=== PATIENT | female | born 1945 | race Caucasian/White ===

== ENCOUNTER 2019-01-13 06:37 | Day surgery (SDC) | payer MEDICARE, OTHER ==
[~2019-01-13 06:37] MED LIST: Lactated Ringers 1,000 ML IV SCH
[2019-01-13] MEDS: Lactated Ringers 1,000 ML IV SCH (07:17)
[2019-01-13] MEDS ORDERED: fentaNYL 100 MCG/2 ML SDV ONE (07:55)
[2019-01-13] MEDS ORDERED: Propofol 200 MG/20 ML SDV ONE (07:55)
--- NOTE | 2019-01-13 09:34 | OR ---
PREOPERATIVE DIAGNOSIS: Screening colonoscopy. POSTOPERATIVE DIAGNOSIS: Sigmoid diverticulosis, otherwise normal exam. PROCEDURE DONE: Total flexible colonoscopy. INDICATION: This is a 73-year-old female who comes in for screening colonoscopy. She denies any symptomatology. She is uncertain of any family history of colon cancer. Her last examination was 17 years ago. TECHNIQUE: The patient was brought to the endoscopy suite, placed in left lateral decubitus position. She was sedated per [employer] with propofol. The flexible video colonoscope was then passed transanally and under visualization advanced to the cecum. Examination revealed a normal ascending, transverse, and descending colon. The sigmoid colon revealed moderate diverticulosis and the rectal mucosa was normal. The scope was then withdrawn. She tolerated the procedure well. FINAL IMPRESSION: Sigmoid diverticulosis, otherwise normal exam. PLAN: The patient was reassured. At her age, actually I do not feel she needs another screening colonoscopy. SCM: 01/13/2019 09:02:17 MODL: 01/13/2019 09:29:09 /[id number]
== END 2019-01-13 10:12 | disposition home or self-care (01) ==
LOC: VM.SDS 06:37
PROVIDERS: ATTEND Surgery
DX: Z12.11 Encounter for screening for malignant neoplasm of colon (principal); K57.30 Diverticulosis of large intestine without perforation or abscess without bleeding; E11.9 Type 2 diabetes mellitus without complications; E78.00 Pure hypercholesterolemia, unspecified; J43.2 Centrilobular emphysema; M81.0 Age-related osteoporosis without current pathological fracture; F33.9 Major depressive disorder, recurrent, unspecified; E66.9 Obesity, unspecified; Z68.32 Body mass index [BMI] 32.0-32.9, adult; F17.210 Nicotine dependence, cigarettes, uncomplicated; Z79.84 Long term (current) use of oral hypoglycemic drugs; Z79.899 Other long term (current) drug therapy
CPT/HCPCS: 45378; 82962; J2704; J3010; J7120; 00812

== ENCOUNTER 2023-10-19 10:10 | Emergency (ER) | payer MEDICARE, OTHER, MEDICAID ==
[2023-10-19 20:13] VITALS: BP 110/72; PULSE 84
== END 2023-10-19 11:50 | disposition home or self-care (01) ==
LOC: VM.ED 10:10
DX: S70.01XA Contusion of right hip, initial encounter (principal); I10 Essential (primary) hypertension; E78.00 Pure hypercholesterolemia, unspecified; K21.9 Gastro-esophageal reflux disease without esophagitis; E11.9 Type 2 diabetes mellitus without complications; E66.9 Obesity, unspecified; Z68.27 Body mass index [BMI] 27.0-27.9, adult; Z72.0 Tobacco use; Z79.899 Other long term (current) drug therapy; Z79.82 Long term (current) use of aspirin; W18.30XA Fall on same level, unspecified, initial encounter; Y93.01 Activity, walking, marching and hiking; Y92.039 Unspecified place in apartment as the place of occurrence of the external cause
CPT/HCPCS: 99283; 99284

== ENCOUNTER 2023-10-26 13:17 | Inpatient (IN) | payer MEDICARE, OTHER, MEDICAID ==
[2023-10-26] MEDS ORDERED: Acetaminophen 325 MG Tab PO ONE (13:38)
[2023-10-26] MEDS ORDERED: Acetaminophen 325 MG Tab PO PRN (16:15)
[2023-10-26 16:31] LABS: HEMATOCRIT 34.9 % (33.0-47.0); HEMOGLOBIN 12.2 g/dL (12.0-16.0); MEAN CORPUSCULAR VOLUME 83.1 fL (78.0-93.0); PLATELET COUNT,PLT 88 x10^3/uL (130-400); WHITE BLOOD CELL COUNT,WBC 6.5 x10^3/uL (4.0-10.0)
[2023-10-26 16:50] LABS: BAND PERCENT MAN 3 % (0-6); EOSINOPHILS ABSOLUTE MAN 0.1 x10^3/uL (0.0-0.5); EOSINOPHILS PERCENT MAN 1 % (0-4); LYMPHOCYTES % ATYPICAL MANUAL 2 % (0); LYMPHOCYTES ABSOLUTE MAN 2.7 x10^3/uL (1.0-4.8); LYMPHOCYTES PERCENT MAN 40 % (25-50); METAMYELOCYTE PERCENT MAN 1 % (0); MONOCYTES ABSOLUTE MAN 0.6 x10^3/uL (0.0-0.8); MONOCYTES PERCENT MAN 9 % (2-11); MYELOCYTE PERCENT MAN 1 % (0); NRBC MANUAL 1 /100WBC (0-5); PLATELET COUNT ESTIMATE DECREASED; SEG NEUTROPHILS PERCENT MAN 43 % (50-80)
[2023-10-26 16:59] LABS: A/G RATIO 0.83; ALBUMIN 3.4 g/dL (3.4-5.0); ANION GAP 19.9 mmol/L (5-15); BILIRUBIN TOTAL 0.5 mg/dL (0.2-1.0); CALCIUM 11.6 mg/dL (8.5-10.1); EST CRCL DRUG DOSING (CG) 37.85 mL/min; POTASSIUM,K 3.9 mmol/L (3.5-5.1); PROTEIN TOTAL,TP 7.5 g/dL (6.4-8.2)
[2023-10-26] MEDS ORDERED: Acetaminophen/Diphenhydramine 500-25 MG Tab PO PRN (17:00)
[2023-10-26] MEDS ORDERED: Famotidine 20 MG Tab PO PRN (17:00)
[2023-10-26] MEDS ORDERED: Albuterol HFA 18 Gm Inhaler INH PRN (17:00)
[2023-10-26] MEDS ORDERED: Morphine 4 MG/ML Syringe IVPUSH PRN (17:22)
[2023-10-26] MEDS ORDERED: Sodium Chloride 0.9% 10 ML Syringe FLUSH PRN (17:23)
[2023-10-26] MEDS: Lidocaine 4% 1 each Patch TOP SCH (17:58)
[2023-10-26] MEDS: metFORMIN 500 MG Tab PO SCH (17:58)
[2023-10-26] MEDS: Sodium Chloride 0.9% 1,000 ML IV SCH (21:05)
[2023-10-26] MEDS: Formoterol/Mometasone 100-5 MCG 8.8 GM Inhaler IH SCH (21:09)
[2023-10-26] MEDS: Acetaminophen/HYDROcodone 325-5 MG Tab PO PRN (21:14)
[2023-10-27] MEDS: Acetaminophen/HYDROcodone 325-5 MG Tab PO PRN ×2 (04:32→14:34)
[2023-10-27] MEDS: Formoterol/Mometasone 100-5 MCG 8.8 GM Inhaler IH SCH ×2 (06:16→21:02)
[2023-10-27] MEDS: Tiotropium Bromide 4 GM Inhalation Spray (2.5mcg/1 dose; 10 doses) INH SCH (06:16)
[2023-10-27 07:12] LABS: HEMATOCRIT 32.4 % (33.0-47.0); HEMOGLOBIN 11.3 g/dL (12.0-16.0); MEAN CORPUSCULAR HGB CONC 34.9 g/dL (32.0-36.0); MEAN CORPUSCULAR VOLUME 83.1 fL (78.0-93.0); PLATELET COUNT,PLT 76 x10^3/uL (130-400); WHITE BLOOD CELL COUNT,WBC 6.3 x10^3/uL (4.0-10.0)
[2023-10-27] MEDS: Sodium Chloride 0.9% 1,000 ML IV SCH (07:14)
[2023-10-27 07:44] LABS: A/G RATIO 0.82; ALBUMIN 3.1 g/dL (3.4-5.0); ANION GAP 18.7 mmol/L (5-15); BILIRUBIN TOTAL 0.4 mg/dL (0.2-1.0); CALCIUM 11.2 mg/dL (8.5-10.1); CREATININE 0.8 mg/dL (0.55-1.02); EST CRCL DRUG DOSING (CG) 51.66 mL/min; POTASSIUM,K 3.7 mmol/L (3.5-5.1); PROTEIN TOTAL,TP 6.9 g/dL (6.4-8.2)
[2023-10-27 07:49] LABS: APPEARANCE,URINE CLOUDY (CLEAR); BILIRUBIN,URINE NEGATIVE (NEGATIVE); COLOR,URINE BROWN (YELLOW); GLUCOSE,URINE NEGATIVE (NEGATIVE); KETONES,URINE NEGATIVE (NEGATIVE); LEUKOCYTE ESTERASE,URINE NEGATIVE (NEGATIVE); NITRITE,URINE POSITIVE (NEGATIVE); OCCULT BLOOD,URINE TRACE-INTACT (NEGATIVE); PH,URINE 5.5 (5.0-8.0); PROTEIN,URINE TRACE mg/dL (NEGATIVE); UROBILINOGEN,URINE 0.2 EU/dL (0.2)
[2023-10-27 07:54] LABS: PROTHROMBIN TIME 11.1 SEC (9.5-12.2)
[2023-10-27 08:01] LABS: AMORPHOUS SEDIMENT,URINE MANY; BACTERIA,URINE MANY /HPF (NOT SEEN); MUCUS,URINE MODERATE /LPF (NOT SEEN); RBC,URINE NOT SEEN /HPF (NOT SEEN); SQUAMOUS EPITHELIAL CELLS,UR RARE /HPF (NOT SEEN); WBC,URINE 0-5 /HPF (NOT SEEN)
[2023-10-27 08:04] LABS: BAND PERCENT MAN 12 % (0-6); LYMPHOCYTES % ATYPICAL MANUAL 2 % (0); LYMPHOCYTES ABSOLUTE MAN 2.4 x10^3/uL (1.0-4.8); LYMPHOCYTES PERCENT MAN 36 % (25-50); METAMYELOCYTE PERCENT MAN 1 % (0); MONOCYTES ABSOLUTE MAN 0.6 x10^3/uL (0.0-0.8); MONOCYTES PERCENT MAN 9 % (2-11); NEUTROPHILS ABSOLUTE MAN 3.3 x10^3/uL (1.8-7.7); NRBC MANUAL 1 /100WBC (0-5); PLATELET COUNT ESTIMATE DECREASED; SEG NEUTROPHILS PERCENT MAN 40 % (50-80)
[2023-10-27] MEDS: Oxybutynin 5 MG Tab.ER PO SCH (08:43)
[2023-10-27] MEDS: metFORMIN 500 MG Tab PO SCH ×2 (08:44→17:37)
[2023-10-27] MEDS ORDERED: Iopamidol 612 MG/ML 100 ML Bottle IVPUSH ONE (08:44)
[2023-10-27] MEDS: FLUoxetine 20 MG Cap PO SCH (08:44)
[2023-10-27] MEDS: Pantoprazole 40 MG Tab.CR PO SCH (08:44)
[2023-10-27] MEDS: Cholecalciferol (Vitamin D3) 25 MCG Tab PO SCH (08:44)
[2023-10-27] MEDS ORDERED: Iopamidol 612 MG/ML 30 ML SDV PO ONE (08:45)
[2023-10-27] MEDS: Albuterol/Ipratropium 3.0-0.5 MG/3 ML Neb Soln NEB SCH ×3 (08:59→18:49)
[2023-10-27] MEDS: cefTRIAXone 1 GM Vial IVPUSH SCH (09:37)
[2023-10-27] MEDS: Lidocaine 4% 1 each Patch TOP SCH (17:37)
[2023-10-28] MEDS: Sodium Chloride 0.9% 1,000 ML IV SCH (01:24)
[2023-10-28] MEDS: Albuterol/Ipratropium 3.0-0.5 MG/3 ML Neb Soln NEB SCH ×4 (01:37→18:08)
[2023-10-28 06:38] LABS: HEMATOCRIT 27.7 % (33.0-47.0); HEMOGLOBIN 9.9 g/dL (12.0-16.0); MEAN CORPUSCULAR HEMOGLOBIN 29.6 pg (26.0-32.0); MEAN CORPUSCULAR HGB CONC 35.7 g/dL (32.0-36.0); MEAN CORPUSCULAR VOLUME 82.7 fL (78.0-93.0); PLATELET COUNT,PLT 61 x10^3/uL (130-400); RED BLOOD CELL COUNT 3.35 x10^6/uL (4.00-5.50)
[2023-10-28 07:08] LABS: A/G RATIO 0.88; BILIRUBIN TOTAL 0.4 mg/dL (0.2-1.0); CALCIUM 10.8 mg/dL (8.5-10.1); CREATININE 0.7 mg/dL (0.55-1.02); EST CRCL DRUG DOSING (CG) 59.04 mL/min; POTASSIUM,K 3.8 mmol/L (3.5-5.1); PROTEIN TOTAL,TP 6.4 g/dL (6.4-8.2)
[2023-10-28 07:16] LABS: ANION GAP 15.8 mmol/L (5-15)
[2023-10-28 07:31] LABS: BAND PERCENT MAN 8 % (0-6); LYMPHOCYTES % ATYPICAL MANUAL 2 % (0); LYMPHOCYTES ABSOLUTE MAN 1.9 x10^3/uL (1.0-4.8); LYMPHOCYTES PERCENT MAN 36 % (25-50); MONOCYTES ABSOLUTE MAN 0.4 x10^3/uL (0.0-0.8); MONOCYTES PERCENT MAN 8 % (2-11); NEUTROPHILS ABSOLUTE MAN 2.7 x10^3/uL (1.8-7.7); NRBC MANUAL 1 /100WBC (0-5); PLATELET COUNT ESTIMATE DECREASED; POLYCHROMASIA OCCASIONAL; SEG NEUTROPHILS PERCENT MAN 46 % (50-80)
[2023-10-28] MEDS: Tiotropium Bromide 4 GM Inhalation Spray (2.5mcg/1 dose; 10 doses) INH SCH (07:44)
[2023-10-28] MEDS: Formoterol/Mometasone 100-5 MCG 8.8 GM Inhaler IH SCH ×2 (07:45→20:55)
[2023-10-28] MEDS: Oxybutynin 5 MG Tab.ER PO SCH (08:28)
[2023-10-28] MEDS: Pantoprazole 40 MG Tab.CR PO SCH (08:28)
[2023-10-28] MEDS: FLUoxetine 20 MG Cap PO SCH (08:28)
[2023-10-28] MEDS: metFORMIN 500 MG Tab PO SCH ×2 (08:28→18:07)
[2023-10-28] MEDS: Cholecalciferol (Vitamin D3) 25 MCG Tab PO SCH (08:29)
[2023-10-28] MEDS: cefTRIAXone 1 GM Vial IVPUSH SCH (08:29)
[2023-10-28] MEDS ORDERED: Sodium Chloride 0.9% 10 ML Syringe FLUSH PRN (08:30)
[2023-10-28] MEDS: Acetaminophen/HYDROcodone 325-5 MG Tab PO PRN ×2 (13:20→23:36)
[2023-10-28] MEDS: Lidocaine 4% 1 each Patch TOP SCH (18:06)
[2023-10-29] MEDS: Albuterol/Ipratropium 3.0-0.5 MG/3 ML Neb Soln NEB SCH ×2 (02:00→06:55)
[2023-10-29 05:07] LABS: % TRANSFERRIN SAT 50.6 % (20.0-50.0)
[2023-10-29 07:33] LABS: HEMATOCRIT 30.2 % (33.0-47.0); HEMOGLOBIN 10.5 g/dL (12.0-16.0); MEAN CORPUSCULAR HEMOGLOBIN 29.2 pg (26.0-32.0); MEAN CORPUSCULAR HGB CONC 34.8 g/dL (32.0-36.0); MEAN CORPUSCULAR VOLUME 83.9 fL (78.0-93.0); PLATELET COUNT,PLT 70 x10^3/uL (130-400); WHITE BLOOD CELL COUNT,WBC 5.2 x10^3/uL (4.0-10.0)
[2023-10-29] MEDS: Formoterol/Mometasone 100-5 MCG 8.8 GM Inhaler IH SCH (07:41)
[2023-10-29 07:49] LABS: CALCIUM 11.1 mg/dL (8.5-10.1); CREATININE 0.7 mg/dL (0.55-1.02); EST CRCL DRUG DOSING (CG) 59.04 mL/min; POTASSIUM,K 4.1 mmol/L (3.5-5.1)
[2023-10-29 07:50] LABS: ANION GAP 17.1 mmol/L (5-15)
[2023-10-29 07:54] LABS: BAND PERCENT MAN 11 % (0-6); EOSINOPHILS ABSOLUTE MAN 0.1 x10^3/uL (0.0-0.5); EOSINOPHILS PERCENT MAN 1 % (0-4); LYMPHOCYTES ABSOLUTE MAN 1.8 x10^3/uL (1.0-4.8); LYMPHOCYTES PERCENT MAN 34 % (25-50); METAMYELOCYTE PERCENT MAN 3 % (0); MONOCYTES ABSOLUTE MAN 0.3 x10^3/uL (0.0-0.8); MONOCYTES PERCENT MAN 6 % (2-11); MYELOCYTE PERCENT MAN 2 % (0); NEUTROPHILS ABSOLUTE MAN 2.8 x10^3/uL (1.8-7.7); POLYCHROMASIA FEW; SEG NEUTROPHILS PERCENT MAN 43 % (50-80)
[2023-10-29 08:00] LABS: PLATELET COUNT ESTIMATE DECREASED
[2023-10-29] MEDS: Pantoprazole 40 MG Tab.CR PO SCH (08:09)
[2023-10-29] MEDS: cefTRIAXone 1 GM Vial IVPUSH SCH (08:09)
[2023-10-29] MEDS: Cholecalciferol (Vitamin D3) 25 MCG Tab PO SCH (08:10)
[2023-10-29] MEDS: Acetaminophen/HYDROcodone 325-5 MG Tab PO PRN (08:10)
[2023-10-29] MEDS: metFORMIN 500 MG Tab PO SCH (08:10)
[2023-10-29] MEDS: Oxybutynin 5 MG Tab.ER PO SCH (08:10)
[2023-10-29] MEDS: FLUoxetine 20 MG Cap PO SCH (08:11)
[2023-10-29] MEDS ORDERED: Polyethylene Glycol 3350 Powder 17 GM Packet PO PRN (08:24)
[2023-10-29] MEDS ORDERED: Furosemide 20 MG Tab PO SCH (09:00)
[2023-10-29] MEDS ORDERED: Docusate Sodium 100 MG Cap PO SCH (09:00)
[2023-10-30] MEDS ORDERED: metFORMIN 500 MG Tab PO SCH (08:00)
[2023-10-30] MEDS ORDERED: Cefuroxime 250 MG Tab PO SCH (09:00)
== END 2023-10-29 09:45 | disposition swing bed (61) | DRG 552 ==
LOC: VM.ED 13:17 → VM.MS 15:23
PROVIDERS: ADMIT Internal Medicine; ATTEND Family Medicine
DX: S32.048A Other fracture of fourth lumbar vertebra, initial encounter for closed fracture (principal); S32.049A Unspecified fracture of fourth lumbar vertebra, initial encounter for closed fracture; N39.0 Urinary tract infection, site not specified; J98.11 Atelectasis; C34.12 Malignant neoplasm of upper lobe, left bronchus or lung; R29.6 Repeated falls; E78.00 Pure hypercholesterolemia, unspecified; I10 Essential (primary) hypertension; K21.9 Gastro-esophageal reflux disease without esophagitis; M19.90 Unspecified osteoarthritis, unspecified site; F32.A Depression, unspecified; E11.9 Type 2 diabetes mellitus without complications; E66.9 Obesity, unspecified; J43.9 Emphysema, unspecified; F17.200 Nicotine dependence, unspecified, uncomplicated; E83.52 Hypercalcemia; R79.89 Other specified abnormal findings of blood chemistry; D69.6 Thrombocytopenia, unspecified; G31.84 Mild cognitive impairment of uncertain or unknown etiology; K76.0 Fatty (change of) liver, not elsewhere classified; R32 Unspecified urinary incontinence; M81.0 Age-related osteoporosis without current pathological fracture; E53.8 Deficiency of other specified B group vitamins; R91.8 Other nonspecific abnormal finding of lung field; J44.9 Chronic obstructive pulmonary disease, unspecified; G47.30 Sleep apnea, unspecified; K59.00 Constipation, unspecified; B96.20 Unspecified Escherichia coli [E. coli] as the cause of diseases classified elsewhere; R13.10 Dysphagia, unspecified; D64.9 Anemia, unspecified; Z79.82 Long term (current) use of aspirin; Z79.84 Long term (current) use of oral hypoglycemic drugs; Z79.899 Other long term (current) drug therapy; Z68.26 Body mass index [BMI] 26.0-26.9, adult; Z90.49 Acquired absence of other specified parts of digestive tract; Z98.890 Other specified postprocedural states; Z98.51 Tubal ligation status; W19.XXXA Unspecified fall, initial encounter
CPT/HCPCS: 36415; 71045; 71260; 72128; 72131; 74177; 80048; 80053; 81001; 81003; 82306; 82550; 82607; 82728; 82947; 83540; 83550; 83735; 83880; 83970; 85025; 85610; 87086; 87088; 87186; 94640; 94760; 97163-GP; 97165-GO; 97530-GO; 97530-GP; 97535-GO; 99284; A9270-GY; J0696; J7030; J7620-GY; Q9967

== ENCOUNTER 2023-10-29 08:38 | Inpatient (IN) | payer MEDICARE, OTHER, MEDICAID ==
[2023-10-29] MEDS ORDERED: Acetaminophen/Diphenhydramine 500-25 MG Tab PO PRN (10:16)
[2023-10-29] MEDS ORDERED: Acetaminophen 325 MG Tab PO PRN (10:16)
[2023-10-29] MEDS ORDERED: Polyethylene Glycol 3350 Powder 17 GM Packet PO PRN (10:16)
[2023-10-29] MEDS ORDERED: Albuterol HFA 18 Gm Inhaler INH PRN (10:16)
[2023-10-29] MEDS ORDERED: Albuterol 0.083% 2.5 MG/3 ML Neb Soln INH PRN (11:35)
[2023-10-29] MEDS ORDERED: Barium Sulfate 98% Powder for Susp 340 GM Bottle ONE (11:38)
[2023-10-29] MEDS: Albuterol/Ipratropium 3.0-0.5 MG/3 ML Neb Soln NEB SCH ×2 (13:20→18:07)
[2023-10-29] MEDS: Acetaminophen/HYDROcodone 325-5 MG Tab PO PRN (17:56)
[2023-10-29] MEDS: Lidocaine 4% 1 each Patch TOP SCH (17:57)
[2023-10-29] MEDS: Docusate Sodium 100 MG Cap PO SCH (23:21)
[2023-10-29] MEDS: Formoterol/Mometasone 100-5 MCG 8.8 GM Inhaler IH SCH (23:21)
[2023-10-30] MEDS: Albuterol/Ipratropium 3.0-0.5 MG/3 ML Neb Soln NEB SCH ×4 (02:00→18:17)
[2023-10-30] MEDS: Formoterol/Mometasone 100-5 MCG 8.8 GM Inhaler IH SCH ×2 (06:59→21:43)
[2023-10-30] MEDS: FLUoxetine 20 MG Cap PO SCH (08:10)
[2023-10-30] MEDS: Furosemide 20 MG Tab PO SCH (08:11)
[2023-10-30] MEDS: metFORMIN 500 MG Tab PO SCH (08:11)
[2023-10-30] MEDS: Cefuroxime 250 MG Tab PO SCH ×2 (08:12→21:42)
[2023-10-30] MEDS: Oxybutynin 5 MG Tab.ER PO SCH (08:13)
[2023-10-30] MEDS: Docusate Sodium 100 MG Cap PO SCH ×2 (08:13→21:43)
[2023-10-30] MEDS: Pantoprazole 40 MG Tab.CR PO SCH (08:14)
[2023-10-30] MEDS: Cholecalciferol (Vitamin D3) 25 MCG Tab PO SCH (08:15)
[2023-10-30] MEDS: Lidocaine 4% 1 each Patch TOP SCH (18:17)
[2023-10-31] MEDS: Albuterol/Ipratropium 3.0-0.5 MG/3 ML Neb Soln NEB SCH ×4 (02:35→18:13)
[2023-10-31] MEDS: Formoterol/Mometasone 100-5 MCG 8.8 GM Inhaler IH SCH ×2 (06:06→20:58)
[2023-10-31] MEDS: Cholecalciferol (Vitamin D3) 25 MCG Tab PO SCH (08:58)
[2023-10-31] MEDS: Pantoprazole 40 MG Tab.CR PO SCH (08:58)
[2023-10-31] MEDS: Cefuroxime 250 MG Tab PO SCH ×2 (08:58→20:56)
[2023-10-31] MEDS: FLUoxetine 20 MG Cap PO SCH (08:58)
[2023-10-31] MEDS: Oxybutynin 5 MG Tab.ER PO SCH (08:59)
[2023-10-31] MEDS: Furosemide 20 MG Tab PO SCH (08:59)
[2023-10-31] MEDS: Docusate Sodium 100 MG Cap PO SCH ×2 (08:59→20:56)
[2023-10-31] MEDS: metFORMIN 500 MG Tab PO SCH (08:59)
[2023-10-31] MEDS: Lidocaine 4% 1 each Patch TOP SCH (18:13)
[2023-10-31] MEDS: Acetaminophen/HYDROcodone 325-5 MG Tab PO PRN (18:26)
[2023-11-01] MEDS: Albuterol/Ipratropium 3.0-0.5 MG/3 ML Neb Soln NEB SCH ×4 (01:25→18:19)
[2023-11-01 06:37] LABS: HEMATOCRIT 29.3 % (33.0-47.0); HEMOGLOBIN 10.2 g/dL (12.0-16.0); MEAN CORPUSCULAR HEMOGLOBIN 29.5 pg (26.0-32.0); MEAN CORPUSCULAR HGB CONC 34.8 g/dL (32.0-36.0); MEAN CORPUSCULAR VOLUME 84.7 fL (78.0-93.0); PLATELET COUNT,PLT 51 x10^3/uL (130-400); RED BLOOD CELL COUNT 3.46 x10^6/uL (4.00-5.50); WHITE BLOOD CELL COUNT,WBC 4.3 x10^3/uL (4.0-10.0)
[2023-11-01 06:50] LABS: ANISOCYTOSIS 1+ SLIGHT; BAND PERCENT MAN 11 % (0-6); EOSINOPHILS PERCENT MAN 1 % (0-4); HYPOCHROMASIA 2+ MODERATE; LYMPHOCYTES ABSOLUTE MAN 1.8 x10^3/uL (1.0-4.8); LYMPHOCYTES PERCENT MAN 41 % (25-50); MONOCYTES ABSOLUTE MAN 0.2 x10^3/uL (0.0-0.8); MONOCYTES PERCENT MAN 5 % (2-11); NEUTROPHILS ABSOLUTE MAN 2.3 x10^3/uL (1.8-7.7); PLATELET COUNT ESTIMATE DECREASED; SEG NEUTROPHILS PERCENT MAN 42 % (50-80); TEARDROP CELLS 1+ SLIGHT
[2023-11-01 06:57] LABS: A/G RATIO 0.75; BILIRUBIN TOTAL 0.6 mg/dL (0.2-1.0); CALCIUM 11.2 mg/dL (8.5-10.1); CREATININE 0.7 mg/dL (0.55-1.02); EST CRCL DRUG DOSING (CG) 59.04 mL/min; MAGNESIUM 1.3 mg/dL (1.8-2.4); POTASSIUM,K 3.7 mmol/L (3.5-5.1)
[2023-11-01 07:07] LABS: ANION GAP 17.7 mmol/L (5-15)
[2023-11-01] MEDS: Formoterol/Mometasone 100-5 MCG 8.8 GM Inhaler IH SCH (07:33)
[2023-11-01] MEDS: FLUoxetine 20 MG Cap PO SCH (08:26)
[2023-11-01] MEDS: Docusate Sodium 100 MG Cap PO SCH (08:26)
[2023-11-01] MEDS: Pantoprazole 40 MG Tab.CR PO SCH (08:26)
[2023-11-01] MEDS: Cefuroxime 250 MG Tab PO SCH (08:26)
[2023-11-01] MEDS: Magnesium Oxide 400 MG Tab PO SCH (08:26)
[2023-11-01] MEDS: metFORMIN 500 MG Tab PO SCH (08:26)
[2023-11-01] MEDS: Furosemide 20 MG Tab PO SCH (08:26)
[2023-11-01] MEDS: Cholecalciferol (Vitamin D3) 25 MCG Tab PO SCH (08:26)
[2023-11-01] MEDS: Oxybutynin 5 MG Tab.ER PO SCH (08:26)
[2023-11-01] MEDS ORDERED: Docusate Sodium 100 MG Cap PO PRN (11:08)
[2023-11-01] MEDS: Acetaminophen/HYDROcodone 325-5 MG Tab PO PRN (14:09)
[2023-11-01] MEDS: Lidocaine 4% 1 each Patch TOP SCH (18:20)
[2023-11-02] MEDS: Magnesium Oxide 400 MG Tab PO SCH ×3 (01:18→20:06)
[2023-11-02] MEDS: Albuterol/Ipratropium 3.0-0.5 MG/3 ML Neb Soln NEB SCH ×4 (01:18→18:23)
[2023-11-02] MEDS: Formoterol/Mometasone 100-5 MCG 8.8 GM Inhaler IH SCH ×3 (01:19→20:06)
[2023-11-02] MEDS: Furosemide 20 MG Tab PO SCH (09:01)
[2023-11-02] MEDS: Pantoprazole 40 MG Tab.CR PO SCH (09:01)
[2023-11-02] MEDS: FLUoxetine 20 MG Cap PO SCH (09:01)
[2023-11-02] MEDS: Cholecalciferol (Vitamin D3) 25 MCG Tab PO SCH (09:01)
[2023-11-02] MEDS: metFORMIN 500 MG Tab PO SCH (09:01)
[2023-11-02] MEDS: Oxybutynin 5 MG Tab.ER PO SCH (09:02)
[2023-11-02] MEDS ORDERED: ALPRAZolam 0.25 MG Tab PO PRN (11:03)
[2023-11-02] MEDS: Lidocaine 4% 1 each Patch TOP SCH (18:24)
[2023-11-03] MEDS: Albuterol/Ipratropium 3.0-0.5 MG/3 ML Neb Soln NEB SCH ×2 (02:00→06:32)
[2023-11-03] MEDS: Formoterol/Mometasone 100-5 MCG 8.8 GM Inhaler IH SCH (06:33)
[2023-11-03 07:06] LABS: HEMATOCRIT 25.9 % (33.0-47.0); MEAN CORPUSCULAR HEMOGLOBIN 29.7 pg (26.0-32.0); MEAN CORPUSCULAR HGB CONC 34.7 g/dL (32.0-36.0); MEAN CORPUSCULAR VOLUME 85.5 fL (78.0-93.0); PLATELET COUNT,PLT 52 x10^3/uL (130-400); RED BLOOD CELL COUNT 3.03 x10^6/uL (4.00-5.50); WHITE BLOOD CELL COUNT,WBC 4.5 x10^3/uL (4.0-10.0)
[2023-11-03 07:26] LABS: A/G RATIO 0.78; ALBUMIN 3.1 g/dL (3.4-5.0); BILIRUBIN TOTAL 0.5 mg/dL (0.2-1.0); CALCIUM 11.5 mg/dL (8.5-10.1); CREATININE 0.7 mg/dL (0.55-1.02); EST CRCL DRUG DOSING (CG) 59.04 mL/min; MAGNESIUM 1.5 mg/dL (1.8-2.4); POTASSIUM,K 3.8 mmol/L (3.5-5.1); PROTEIN TOTAL,TP 7.1 g/dL (6.4-8.2)
[2023-11-03 07:27] LABS: ANION GAP 16.8 mmol/L (5-15)
[2023-11-03 07:55] LABS: ANISOCYTOSIS 1+ SLIGHT; BAND PERCENT MAN 9 % (0-6); EOSINOPHILS ABSOLUTE MAN 0.1 x10^3/uL (0.0-0.5); EOSINOPHILS PERCENT MAN 2 % (0-4); LYMPHOCYTES ABSOLUTE MAN 1.8 x10^3/uL (1.0-4.8); LYMPHOCYTES PERCENT MAN 40 % (25-50); MONOCYTES ABSOLUTE MAN 0.4 x10^3/uL (0.0-0.8); MONOCYTES PERCENT MAN 8 % (2-11); NEUTROPHILS ABSOLUTE MAN 2.3 x10^3/uL (1.8-7.7); OVALOCYTES 1+ SLIGHT; PLATELET COUNT ESTIMATE DECREASED; SEG NEUTROPHILS PERCENT MAN 41 % (50-80)
[2023-11-03] MEDS: Cholecalciferol (Vitamin D3) 25 MCG Tab PO SCH (08:40)
[2023-11-03] MEDS: Oxybutynin 5 MG Tab.ER PO SCH (08:40)
[2023-11-03] MEDS: Furosemide 20 MG Tab PO SCH (08:40)
[2023-11-03] MEDS: Acetaminophen/HYDROcodone 325-5 MG Tab PO PRN (08:41)
[2023-11-03] MEDS: Magnesium Oxide 400 MG Tab PO SCH (08:41)
[2023-11-03] MEDS: FLUoxetine 20 MG Cap PO SCH (08:41)
[2023-11-03] MEDS: metFORMIN 500 MG Tab PO SCH (08:41)
[2023-11-03] MEDS: Pantoprazole 40 MG Tab.CR PO SCH (08:41)
== END 2023-11-03 10:30 | DRG 948 ==
LOC: VM.MS 09:46
PROVIDERS: ADMIT Family Medicine; ATTEND Family Medicine
DX: R53.1 Weakness (principal); I50.32 Chronic diastolic (congestive) heart failure; N39.0 Urinary tract infection, site not specified; F33.1 Major depressive disorder, recurrent, moderate; C78.7 Secondary malignant neoplasm of liver and intrahepatic bile duct; J98.11 Atelectasis; C34.12 Malignant neoplasm of upper lobe, left bronchus or lung; Z66 Do not resuscitate; E11.9 Type 2 diabetes mellitus without complications; F17.200 Nicotine dependence, unspecified, uncomplicated; G47.00 Insomnia, unspecified; J43.9 Emphysema, unspecified; M81.0 Age-related osteoporosis without current pathological fracture; E66.9 Obesity, unspecified; M19.90 Unspecified osteoarthritis, unspecified site; R29.6 Repeated falls; E83.52 Hypercalcemia; R79.89 Other specified abnormal findings of blood chemistry; D69.6 Thrombocytopenia, unspecified; G31.84 Mild cognitive impairment of uncertain or unknown etiology; K76.0 Fatty (change of) liver, not elsewhere classified; R32 Unspecified urinary incontinence; E53.8 Deficiency of other specified B group vitamins; K59.09 Other constipation; J44.9 Chronic obstructive pulmonary disease, unspecified; R13.10 Dysphagia, unspecified; E83.42 Hypomagnesemia; I11.0 Hypertensive heart disease with heart failure; F41.9 Anxiety disorder, unspecified; D63.8 Anemia in other chronic diseases classified elsewhere; E78.00 Pure hypercholesterolemia, unspecified; S32.049D Unspecified fracture of fourth lumbar vertebra, subsequent encounter for fracture with routine healing; Z79.84 Long term (current) use of oral hypoglycemic drugs; Z79.899 Other long term (current) drug therapy; Z68.26 Body mass index [BMI] 26.0-26.9, adult; Z90.49 Acquired absence of other specified parts of digestive tract; Z98.51 Tubal ligation status; Z98.890 Other specified postprocedural states; W19.XXXD Unspecified fall, subsequent encounter
CPT/HCPCS: 36415; 71046; 74230; 80053; 82947; 83735; 83880; 85025; 92610-GN; 92611-GN; 94640; 97110-GP; 97116-GP; A9270-GY; J7620-GY